=== PATIENT | female | born 1940 | race Caucasian/White ===

== ENCOUNTER 2024-03-18 14:26 | Outpatient (POV) | payer MEDICARE, SELFPAY ==
--- NOTE | 2024-03-18 14:47 | EXP.PAIN.OV ---
HPI Data of Consult Patient: new to practice Consult date: 03/18/24 Requesting Physician: Terrie Schmid APRN Primary Care Provider: Onelia Hooker Consult Narrative Reason for consult: Bilateral leg pain, left hip pain History of present illness: Ms. Kong is a 84 year old female who presents today as a new patient. She is a referral from Dr. Portillo office. Today she rates her pain a 8 out of 10. Patient states her pain is all in her bilateral lower legs and feet as well as her left hip. Patient describes it as a burning, stinging sensation that is worse with activity. Patient states that this really started around September of last year unrelated to any specific trauma or injury. She does state that the pain has progressively worsened over time. She states it does interfere with her ability to perform activities of daily living such as cooking and cleaning. Patient has tried [id number] Tylenol along with heat and ice and topicals with minimal relief. She was prescribed gabapentin and duloxetine however could not tolerate these medications due to side effects. Patient states that she did talk to her primary care provider thinking that maybe she was just getting neuropathy however they stated this was not what that provider believed. She states that when she went to Dr. Portillo office they did do the MRI and saw additional findings. Patient does state that the left side is worse than the right and that she is interested in any help we may be able to provide. She states that she has had physical therapy for more than 4 weeks with no additional change of her symptoms. She states that she was discharged from this for this reason. Patient denies any prior back surgery or injection history.Patient is prescribed alprazolam and gabapentin from outside providers. Her Selvin has been reviewed and is appropriate. CC: Terrie Schmid APRN [facility] Disclaimer: The information contained in this section may have been updated after the patient was seen, as this information can be updated by other users. Medical History (Updated 03/18/24 @ 15:25 by Terrie Schmid APRN) Hypertension Family History (Updated 03/18/24 @ 14:54 by Rosy Hamilton RN) Other No significant family history Social History (Updated 03/18/24 @ 14:55 by Rosy Hamilton RN) Smoking Status: Never smoker alcohol intake: never current occupational status: retired Travel in the last 8 weeks: None Review of Systems Review of Systems Review of systems:: pertinent systems reviewed and negative unless documented below Review of systems (narrative): Review of Systems: General: No recent weight changes, no fever, no sleep disturbances Respiratory: No cough, no shortness of air, no recurring pulmonary infections Cardiovascular/peripheral vascular: No chest pain, no palpitations, no edema, no shortness of breath Gastrointestinal: No new onset incontinence, normal bowel movements reported Genitourinary: No new onset incontinence Musculoskeletal:bilateral leg pain, left hip pain Psychiatric: [Normal mood/affect] Neurological: [Denies weakness in extremities], [denies balance issues] Meds Home Medications and Allergies Home Medications Medication Instructions Recorded Confirmed Type alprazolam 0.25 mg tablet 0.25 mg PO BID 03/18/24 03/18/24 History amlodipine 10 mg tablet 10 mg PO DAILY 03/18/24 03/18/24 History lisinopril 5 mg tablet 5 mg PO DAILY 03/18/24 03/18/24 History metoprolol succinate 50 mg 50 mg PO DAILY 03/18/24 03/18/24 History tablet,extended release 24 hr New Prescriptions to Start Prescriptions: Allergies Allergy/AdvReac Type Severity Reaction Status Date / Time penicillin G Allergy Intermediate Verified 03/18/24 14:46 Objective Narrative: Physical Exam: General: Alert and oriented x3, no acute distress, pleasant and cooperative Lungs: Respirations even and unlabored, symmetrical chest expansion Eyes: PERRL Musculoskeletal: Flexion and extension of lumbar [spine] somewhat guarded secondary to pain, [antalgic gait noted] point tenderness along left greater trochanteric bursa Neurological: Speech clear, no gross sensory deficit Additional findings Additional findings: MRI lumbar spine 02/24/2024 Findings: Paraspinal soft tissues grossly unremarkable other than colonic diverticulosis. Mild levoscoliosis with accentuation of the lordosis. Marrow signal generally age-appropriate. Distal cord and conus medullaris have a normal appearance with the tip of the conus at the level of L1-L2. T11-12 and T12-L1 are unremarkable. Foramina patent L1-L2: Grade 1 retrolisthesis L1. Concentric disc bulge. No significant canal stenosis. Mild facet arthropathy. Foramen are patent L2-3: Disc intact. Foramina patent. Mild facet arthropathy. L3-4: Mild concentric disc bulge. Moderate hypertrophic facet arthropathy and ligamentous hypertrophy. No significant stenosis. Foramina patent L4-5: Subtle grade 1 anterolisthesis L4. Mild concentric disc bulge. Moderate ligamentous hypertrophy and facet arthropathy contouring the thecal sac. These factors produce mild spinal stenosis. Foramina patent. L5-S1: Grade 1 anterolisthesis L5. Severe facet arthropathy with effusion of the joints. No visible synovial fluid. Moderate ligamentous hypertrophy. There is triangulation of the thecal sac posteriorly. These factors contribute to produce moderate spinal stenosis. Disc margin approximates both S1 nerve roots. Mild right and moderate left foraminal stenosis by endplate osteophytic disc complex Assessment and Plan *Assessment and plan (1) Degenerative disc disease, lumbar: Status: Acute Category: Medical Code(s): M51.36 - Other intervertebral disc degeneration, lumbar region (2) Lumbar radiculopathy: Status: Acute Category: Medical Code(s): M54.16 - Radiculopathy, lumbar region (3) Lumbar spinal stenosis: Status: Acute Qualifiers: Neurogenic claudication status: with neurogenic claudication Qualified Code(s): M48.062 - Spinal stenosis, lumbar region with neurogenic claudication Category: Medical Code(s): M48.061 - Spinal stenosis, lumbar region without neurogenic claudication (4) Greater trochanteric bursitis of left hip: Status: Acute Category: Medical Code(s): M70.62 - Trochanteric bursitis, left hip Plan Patient is experiencing significant pain in her bilateral legs with burning and numbness. Patient did have limited range of motion of her lumbar spine. Patient's MRI findings are most Significant at the L5-S1 level. I have discussed with patient that she may benefit from lumbar epidural steroid injection. Risk and benefits were discussed with the patient and she would like to proceed forward with this plan of care. Patient is not on any blood thinners. I will also order the patient a compounded cream. Patient has tried and failed conservative therapy including recent physical therapy with continued at home stretching and exercise. Will also send in a 14-day supply of pregabalin 50 mg at bedtime. Patient will be scheduled for a LESI L5-S1 under fluoroscopy. Patient has been instructed to contact the clinic with any concerns before the next appointment. Dr. Escobedo has reviewed this note and agrees with this plan of care. This note was dictated using voice recognition software and make contain errors or omissions.
[2024-03-18 14:54] VITALS: BP 137/74; PULSE 70; RESP 18; O2SAT 97; BMI 26.3
== END 2024-03-18 23:59 | disposition home or self-care (01) ==
PROVIDERS: PCP Family Medicine; Visit Provider Nurse Practitioner Family
DX: M48.062 Spinal stenosis, lumbar region with neurogenic claudication; M70.62 Trochanteric bursitis, left hip; M51.16 Intervertebral disc disorders with radiculopathy, lumbar region
CPT/HCPCS: 99202; G0463

== ENCOUNTER 2024-04-13 10:22 | Day surgery (SDC) | payer MEDICARE, SELFPAY ==
[2024-04-13 10:40] VITALS: BP 125/63; PULSE 72; RESP 18; TEMP 36.4; O2SAT 95; BMI 29.0
[2024-04-13] MEDS: methylPREDNISolone ACETATE 80MG/ML VIAL 80 MG (10:40)
[2024-04-13 10:41] VITALS: BP 122/59; PULSE 78; RESP 18; O2SAT 97
[2024-04-13 10:42] VITALS: BP 122/59; BP 126/64; PULSE 67; PULSE 78; RESP 18; TEMP 36.4; O2SAT 95; O2SAT 97
--- NOTE | 2024-04-13 10:46 | P.PCN_ITS ---
Procedure Date: 04/13/24 Time: 10:40 Anesthesiologist:: Marvin Ayala CRNA Complications:: None Pre-procedure Diagnosis:: Degenerative disc lumbar spine multilevels. Lumbar radiculopathy. Lumbar spondylosis. Multilevel lumbar facet arthropathy. Post-procedure Diagnosis:: Same. Indications for Procedure:: This patient is a very pleasant 84-year-old female comes our clinic today for a lumbar epidural steroid injection at the L5-S1 level. Patient reports low back pain as well as bilateral hip and leg radicular symptoms. She rates her pain 7/10. Procedure Details:: Procedure: Lumbar epidural steroid injection under fluoroscopy Informed consent was obtained and the risks and benefits of the procedure were explained to the patient. The patient was taken to the procedure room and noninvasive monitors placed, including noninvasive blood pressure cuff and pulse oximeter. The back was viewed using C-arm Fluoroscopy and prepped using Chloraprep as a cleansing solution and the L5-S1 interspace was palpated. Skin and subcutaneous tissues were anesthetized using lidocaine 1.5% and a 25-gauge needle. After this, an 18-gauge Touhy epidural needle was placed into the L5-S1 interspace and advanced using fluoroscopic guidance and loss of resistance to air until the epidural space was encountered. After confirmation of needle placement in the epidural space, with dye, a solution containing normal saline, 3 mL and Depo-Medrol 80 mg were incrementally injected into the lumbar epidural space. The patient tolerated the procedure well with no complications. The patient was observed in the Pain Clinic and then discharged home neurolog ically intact. Plan and Disposition:: Patient was discharged without incident.
== END 2024-04-13 10:42 | disposition home or self-care (01) ==
PROVIDERS: PCP Family Medicine; Visit Provider Nurse Anesthetist, Certified Registered
DX: M51.16 Intervertebral disc disorders with radiculopathy, lumbar region (principal); M47.26 Other spondylosis with radiculopathy, lumbar region
CPT/HCPCS: 62323; J1010

== ENCOUNTER 2024-04-29 12:51 | Outpatient (POV) | payer MEDICARE, SELFPAY ==
[2024-04-29 13:16] VITALS: BP 125/64; PULSE 67; RESP 16; O2SAT 97; BMI 25.5
--- NOTE | 2024-04-29 13:21 | EXP.PAIN.SOA ---
[facility] Pain Management SOAP Note Subjective:: Patient is a pleasant 84-year-old female who presents today for follow-up lumbar epidural steroid injection L5-S1 on 04/13/2024. Today she rates her pain a 5 out of 10. Patient denies any new trauma or injury. She does state that she has had at least 75% improvement following this injection and feels like it still helping. Patient states that the medication of pregabalin that we did also prescribed that initially she did really well with it and took it for over a week with significant improvement of her pain that she was experiencing down her left leg at night. Patient states that she was able to sleep throughout the night and that her pain was covered until about 930 the next day. Patient does state that all of a sudden on Friday she started experiencing diarrhea that followed through on Friday and Friday. Patient states that she was unsure if she had eaten something or whether or not if possibly the pregabalin had done it. Patient states that she did stop taking this medication and as of right now after having the injection she is still not having pain at night. Patient states that her current symptoms are more so just during the day and only her on the back of her left thigh and calf. She states it is not as severe as what it was and she is able to move around easier. Patient does state that she feels like a lot of her symptoms now are more so prominent when going up and down stairs related to arthritis. Patient states she cannot tolerate ibuprofen due to stomach issues however she denies any heart issues. Patient is asking if there is anything we could provide to help with the day pain. Patient states she did get her compounded cream and states she still is using it however she really has not noticed significant improvement. Her Selvin has been reviewed and is appropriate. Review of Systems: General: No recent weight changes, no fever, no sleep disturbances Respiratory: No cough, no shortness of air, no recurring pulmonary infections Cardiovascular/peripheral vascular: No chest pain, no palpitations, no edema, no shortness of breath Gastrointestinal: No new onset incontinence, normal bowel movements reported Genitourinary: No new onset incontinence Musculoskeletal: Left leg pain Psychiatric: [Normal mood/affect] Neurological: [Denies weakness in extremities], [denies balance issues] Objective:: Physical Exam: General: Alert and oriented x3, no acute distress, pleasant and cooperative Lungs: Respirations even and unlabored, symmetrical chest expansion Eyes: PERRL Musculoskeletal: Flexion and extension of lumbar [spine] somewhat guarded secondary to pain, [antalgic gait noted] Neurological: Speech clear, no gross sensory deficit Assessment:: Degenerative disc disease of lumbar spine with lumbar radiculopathy symptoms, lumbar spinal stenosis, greater trochanteric bursitis Plan:: Patient has had significant improvement following her lumbar epidural and does not require any additional injection therapy at this time. Patient will return to clinic in 1 month for reevaluation of symptoms and plan of care. I will send in a 14-day supply of meloxicam 7.5 mg daily. Patient was counseled to discontinue all other NSAIDs while taking this and to try it with food to minimize GI upset. Patient has been instructed to contact the clinic with any concerns before the next appointment. Dr. Escobedo has reviewed this note and agrees with this plan of care. This note was dictated using voice recognition software and make contain errors or omissions. [facility] Disclaimer: The information contained in this section may have been updated after the patient was seen, as this information can be updated by other users. Medical History Hypertension Family History Other No significant family history Social History Smoking Status: Never smoker alcohol intake: never current occupational status: other Travel in the last 8 weeks: None
== END 2024-04-29 23:59 | disposition home or self-care (01) ==
PROVIDERS: Visit Provider Nurse Practitioner Family
DX: M51.16 Intervertebral disc disorders with radiculopathy, lumbar region (principal); M48.061 Spinal stenosis, lumbar region without neurogenic claudication; M70.60 Trochanteric bursitis, unspecified hip
CPT/HCPCS: 99212; G0463

== ENCOUNTER 2024-06-02 12:46 | Outpatient (POV) | payer MEDICARE, SELFPAY ==
[2024-06-02 13:12] VITALS: BP 134/66; PULSE 64; RESP 18; O2SAT 96; BMI 24.5
--- NOTE | 2024-06-02 13:31 | A.OFFVIS_ITS ---
[facility] Disclaimer: The information contained in this section may have been updated after the patient was seen, as this information can be updated by other users. Medical History (Updated 06/02/24 @ 13:37 by Terrie Schmid APRN) Hypertension Family History Other No significant family history Social History Smoking Status: Never smoker alcohol intake: never current occupational status: other Travel in the last 8 weeks: None PM Subjective & Objective Subjective Subjective:: Patient is a pleasant 84-year-old female who presents today for follow-up. Today she rates her pain an 8 out of 10. Patient states that she is still experiencing chronic pain that runs down her left leg. Patient states it is predominantly a little bit above her left knee on the outer side and then it runs down to her ankle. She denies any new trauma or injury. Patient did previously have a lumbar epidural back in April that did provide 75% relief and was helping up until about 2 weeks ago. Patient does state the pain is a burning stinging sensation that is affecting her overall balance. Patient states she has difficulty performing ADLs such as cooking or cleaning or even simple ambulation. Patient states that she has trouble going up and down stairs and that she tried additionally the topical cream that we ordered however still made no improvement. Patient was tried on gabapentin from her primary care in the past however could not tolerate it and was tried on pregabalin from our office however felt like she might of had some diarrhea related to this medication and discontinued it. Her Selvin has been reviewed and is appropriate. Review of Systems: General: No recent weight changes, no fever, no sleep disturbances Respiratory: No cough, no shortness of air, no recurring pulmonary infections Cardiovascular/peripheral vascular: No chest pain, no palpitations, no edema, no shortness of breath Gastrointestinal: No new onset incontinence, normal bowel movements reported Genitourinary: No new onset incontinence Musculoskeletal:low back pain, Left leg pain Psychiatric: [Normal mood/affect] Neurological: [Denies weakness in extremities], [denies balance issues] Pain at rest (0-10 scale): 8 Objective Objective:: Physical Exam: General: Alert and oriented x3, no acute distress, pleasant and cooperative Lungs: Respirations even and unlabored, symmetrical chest expansion Eyes: PERRL Musculoskeletal: Flexion and extension of lumbar [spine] somewhat guarded secondary to pain, [antalgic gait noted] positive left leg raise with decreased sensation to light touch and decreased reflexes Neurological: Speech clear, no gross sensory deficit Has patient had previous pain injection?: No Conservative treatment options previously tried: NSAIDS Length of treatment: Longer than 6 weeks and Home exercise plan Length of treatment: Longer than 6 weeks Meds Home Medications and Allergies Home Medications ?Medication ?Instructions ?Recorded ?Confirmed ?Type alprazolam 0.25 mg tablet 0.25 mg PO BID 03/18/24 06/02/24 History amlodipine 10 mg tablet 10 mg PO DAILY 03/18/24 06/02/24 History lisinopril 5 mg tablet 5 mg PO DAILY 03/18/24 06/02/24 History metoprolol succinate 50 mg 50 mg PO DAILY 03/18/24 06/02/24 History tablet,extended release 24 hr pregabalin 50 mg capsule 50 mg PO HS #14 caps 03/18/24 06/02/24 Rx meloxicam 7.5 mg tablet 7.5 mg PO DAILY #14 tabs 04/29/24 06/02/24 Rx New Prescriptions to Start Prescriptions: Allergies Allergy/AdvReac Type Severity Reaction Status Date / Time penicillin G Allergy Intermediate Verified 03/18/24 14:46 Assessment and Plan *Assessment and plan (1) Lumbar radiculopathy: Status: Acute Category: Medical Code(s): M54.16 - Radiculopathy, lumbar region (2) Degenerative disc disease, lumbar: Status: Acute Category: Medical Code(s): M51.36 - Other intervertebral disc degeneration, lumbar region (3) Left leg pain: Status: Acute Category: Medical Code(s): M79.605 - Pain in left leg Plan Patient is experiencing significant pain down her entire left extremity with burning and tingling on the outer aspect of her lower left leg. Patient did have positive leg raise with decreased sensation light touch and decreased reflexes. I did discuss with patient that she may benefit from a left transforaminal epidural steroid injection. Risk and benefits were discussed with patient and she would like to proceed forward with this plan of care. Patient is not on any blood thinners. Patient has tried and failed conservative therapy including continued at home stretching exercise between injections for longer than 6 weeks. Patient will be scheduled for a left transforaminal epidural steroid injection L4-L5 and L5-S1 under fluoroscopy. Patient has been instructed to contact the clinic with any concerns before the next appointment. Dr. Escobedo has reviewed this note and agrees with this plan of care. This note was dictated using voice recognition software and make contain errors or omissions. All injections are used with Lidocaine or Bupivacaine and Depo Medrol.
== END 2024-06-02 23:59 | disposition home or self-care (01) ==
LOC: SC.PAIN 12:47
PROVIDERS: Visit Provider Nurse Practitioner Family
DX: M54.16 Radiculopathy, lumbar region (principal); M51.36 Other intervertebral disc degeneration, lumbar region; M79.605 Pain in left leg
CPT/HCPCS: 99212; G0463

== ENCOUNTER 2024-06-15 13:10 | Day surgery (SDC) | payer MEDICARE, SELFPAY ==
[2024-06-15 13:43] VITALS: BP 137/69; PULSE 75; RESP 16; TEMP 36.7; O2SAT 93; BMI 25.4
[2024-06-15] MEDS: LIDOCAINE 1% 5ML PF VIAL 5 ML (13:47)
[2024-06-15 13:49] VITALS: BP 152/72; PULSE 76; RESP 18; O2SAT 97
[2024-06-15 13:50] VITALS: BP 152/72; PULSE 76; RESP 18; O2SAT 97
--- NOTE | 2024-06-15 13:54 | P.PCN_ITS ---
Procedure Date: 06/15/24 Time: 13:50 Anesthesiologist:: Marvin Ayala CRNA Complications:: None Pre-procedure Diagnosis:: Degenerative disc lumbar spine multilevels. Lumbar radiculopathy. Multilevel lumbar disc bulge. Lumbar spondylosis. Post-procedure Diagnosis:: Same. Indications for Procedure:: Patient is a very pleasant 84-year-old female comes our clinic today for a left L3-4 and L4-5 transforaminal epidural steroid injection. Patient describes left low lumbar back pain as well as left hip and leg radicular symptoms as constant, dull, aching. Patient had significant improvement terms of her overall symptoms with the previous injection of the same levels. Procedure Details:: Details of the procedure explained to the patient. The patient was taken to procedure room placed in the prone position. The area over the lumbar spine was cleansed using chlorhexidine as a cleansing solution. Using fluoroscopy guidance markers were placed over the left border of the L3 and L4 vertebral body. At each marker the skin and subcutaneous tissue was anesthetized using 1% lidocaine and a 25-gauge needle. At this time using fluoroscopy guidance 3 and half inch 22-gauge spinal needle was used to access the upper one third of the l eft L3-4, L4-5 foramen. Using fluoroscopy guidance in the lateral position needle position was confirmed using 0.5 mL of contrast dye. Good spread was noted in the epidural space at each level. After negative aspiration 2 mL of 1% lidocaine and 40 mg of Depo-Medrol was injected at each level. Patient tolerated procedure without difficulty. There are no complications. Plan and Disposition:: Patient was discharged out incident.
[2024-06-15 13:59] VITALS: BP 139/74; PULSE 66; RESP 18; O2SAT 94
== END 2024-06-15 14:01 | disposition home or self-care (01) ==
PROVIDERS: Visit Provider Nurse Anesthetist, Certified Registered
DX: M51.16 Intervertebral disc disorders with radiculopathy, lumbar region (principal); M47.26 Other spondylosis with radiculopathy, lumbar region
CPT/HCPCS: 64483; 64484; J1010

== ENCOUNTER 2024-07-05 13:45 | Outpatient (POV) | payer MEDICARE, SELFPAY ==
[2024-07-05 14:11] VITALS: BP 146/70; PULSE 70; RESP 18; O2SAT 98; BMI 25.4
--- NOTE | 2024-07-05 16:10 | EXP.PAIN.SOA ---
[facility] Disclaimer: The information contained in this section may have been updated after the patient was seen, as this information can be updated by other users. Medical History Hypertension Family History Other No significant family history Social History Smoking Status: Never smoker alcohol intake: never current occupational status: retired Travel in the last 8 weeks: None PM Subjective & Objective Subjective Subjective:: Patient is a pleasant 84-year-old female who presents today for follow-up of left transforaminal epidural steroid injection L3-L4 and L4-L5 on 06/15/2024. Patient does state today that her pain is an 8 out of 10 however does state that this injection worked very well and that it did decrease the severity. By at least 50%. Patient does state that it is still helping and that she is able to do more and was able to even mow and weed eat. Patient states that she does occasionally have to stop and take breaks and that it is much more manageable. Patient is currently managed with meloxicam 7.5 mg twice daily from our office and states that she has not had any stomach issues with this medication and that it does overall seem like it may be helping. Patient is also seeing about starting chiropractor therapy they are in [place]. Her Selvin has been reviewed and is appropriate. Review of Systems: General: No recent weight changes, no fever, no sleep disturbances Respiratory: No cough, no shortness of air, no recurring pulmonary infections Cardiovascular/peripheral vascular: No chest pain, no palpitations, no edema, no shortness of breath Gastrointestinal: No new onset incontinence, normal bowel movements reported Genitourinary: No new onset incontinence Musculoskeletal: Low back pain Psychiatric: [Normal mood/affect] Neurological: [Denies weakness in extremities], [denies balance issues] Pain at rest (0-10 scale): 8 Objective Objective:: Physical Exam: General: Alert and oriented x3, no acute distress, pleasant and cooperative Lungs: Respirations even and unlabored, symmetrical chest expansion Eyes: PERRL Musculoskeletal: Flexion and extension of lumbar [spine] somewhat guarded secondary to pain, [antalgic gait noted] Neurological: Speech clear, no gross sensory deficit Has patient had previous pain injection?: Yes Percent improvement in pain since last injection: 50% Conservative treatment options previously tried: Home exercise plan Length of treatment: Longer than 6 weeks Meds Home Medications and Allergies Home Medications ?Medication ?Instructions ?Recorded ?Confirmed ?Type alprazolam 0.25 mg tablet 0.25 mg PO BID 03/18/24 07/05/24 History amlodipine 10 mg tablet 10 mg PO DAILY 03/18/24 07/05/24 History lisinopril 5 mg tablet 5 mg PO DAILY 03/18/24 07/05/24 History metoprolol succinate 50 mg 50 mg PO DAILY 03/18/24 07/05/24 History tablet,extended release 24 hr pregabalin 50 mg capsule 50 mg PO HS #14 caps 03/18/24 07/05/24 Rx meloxicam 7.5 mg tablet 7.5 mg PO DAILY #14 tabs 04/29/24 07/05/24 Rx New Prescriptions to Start Prescriptions: Allergies Allergy/AdvReac Type Severity Reaction Status Date / Time penicillin G Allergy Intermediate Verified 06/15/24 13:44 Assessment and Plan *Assessment and plan (1) Lumbar radiculopathy: Status: Acute Category: Medical Code(s): M54.16 - Radiculopathy, lumbar region (2) Degenerative disc disease, lumbar: Status: Acute Category: Medical Code(s): M51.36 - Other intervertebral disc degeneration, lumbar region Plan Patient has had significant improvement following her transforaminal epidural and does not require any additional injection therapy at this time. I will refill the patient's meloxicam and also send in a 2-week dose of baclofen 5 mg twice daily as needed. Patient will return to clinic in 1 month for reevaluation of symptoms and plan of care. Patient has been instructed to contact the clinic with any concerns before the next appointment. Dr. Escobedo has reviewed this note and agrees with this plan of care. This note was dictated using voice recognition software and make contain errors or omissions. All injections are used with Lidocaine or Bupivacaine and Depo Medrol.
== END 2024-07-05 23:59 | disposition home or self-care (01) ==
PROVIDERS: PCP Family Medicine; Visit Provider Nurse Practitioner Family
DX: M51.16 Intervertebral disc disorders with radiculopathy, lumbar region (principal)
CPT/HCPCS: 99212; G0463

== ENCOUNTER 2024-09-01 12:52 | Outpatient (POV) | payer MEDICARE, SELFPAY ==
--- NOTE | 2024-09-01 13:17 | EXP.PAIN.SOA ---
[facility] Disclaimer: The information contained in this section may have been updated after the patient was seen, as this information can be updated by other users. Medical History Hypertension Family History Other No significant family history Social History Smoking Status: Never smoker alcohol intake: never current occupational status: retired Travel in the last 8 weeks: None PM Subjective & Objective Subjective Subjective:: Patient is a pleasant 84-year-old female who presents today for 2-month follow-up. Today she rates her pain a 9 out of 10. She denies any new trauma or injury. She does state that all of her pain is around the backside of her calves and her feet have numbness along the bottom.She did have a left transforaminal epidural steroid injection L3-L4 and L4-L5 on 06/15/2024 that did provide at least 50% improvement. She states that this does seem to be still doing well other than the current pains. Patient does state from her last visit she did get prescribed gabapentin from an outside provider and she could not tolerate this. She states she was then given oral steroids and ended up in the hospital due to elevated heart rate and blood pressure. Patient is currently managed with meloxicam 7.5 mg twice daily from our office she denies any side effects from this medication. She was previously tried on pregabalin 50 mg however about a week and a half and she had an episode of diarrhea and discontinued this medication. Her Selvin has been reviewed and is appropriate. Review of Systems: General: No recent weight changes, no fever, no sleep disturbances Respiratory: No cough, no shortness of air, no recurring pulmonary infections Cardiovascular/peripheral vascular: No chest pain, no palpitations, no edema, no shortness of breath Gastrointestinal: No new onset incontinence, normal bowel movements reported Genitourinary: No new onset incontinence Musculoskeletal: Lower calf pain, feet pain Psychiatric: [Normal mood/affect] Neurological: [Denies weakness in extremities], [denies balance issues] Pain at rest (0-10 scale): 9 Objective Objective:: Physical Exam: General: Alert and oriented x3, no acute distress, pleasant and cooperative Lungs: Respirations even and unlabored, symmetrical chest expansion Eyes: PERRL Musculoskeletal: Flexion and extension of bilateral feet somewhat guarded secondary to pain, [antalgic gait noted] Neurological: Speech clear, no gross sensory deficit Has patient had previous pain injection?: No Conservative treatment options previously tried: Home exercise plan Length of treatment: Longer than 12 weeks Meds Home Medications and Allergies Home Medications ?Medication ?Instructions ?Recorded ?Confirmed ?Type alprazolam 0.25 mg tablet 0.25 mg PO BID 03/18/24 07/05/24 History amlodipine 10 mg tablet 10 mg PO DAILY 03/18/24 07/05/24 History lisinopril 5 mg tablet 5 mg PO DAILY 03/18/24 07/05/24 History metoprolol succinate 50 mg 50 mg PO DAILY 03/18/24 07/05/24 History tablet,extended release 24 hr pregabalin 50 mg capsule 50 mg PO HS #14 caps 03/18/24 07/05/24 Rx baclofen 5 mg tablet 5 mg PO BID #28 tabs 07/05/24 Rx meloxicam 7.5 mg tablet 7.5 mg PO BID #60 tabs 07/05/24 Rx meloxicam 7.5 mg tablet 7.5 mg PO BID #60 tabs 08/12/24 Rx New Prescriptions to Start Prescriptions: Allergies Allergy/AdvReac Type Severity Reaction Status Date / Time penicillin G Allergy Intermediate Verified 06/15/24 13:44 Assessment and Plan *Assessment and plan (1) Left leg pain: Status: Acute Category: Medical Code(s): M79.605 - Pain in left leg (2) Greater trochanteric bursitis of left hip: Status: Acute Category: Medical Code(s): M70.62 - Trochanteric bursitis, left hip (3) Lumbar spinal stenosis: Status: Acute Qualifiers: Neurogenic claudication status: with neurogenic claudication Qualified Code(s): M48.062 - Spinal stenosis, lumbar region with neurogenic claudication Category: Medical Code(s): M48.061 - Spinal stenosis, lumbar region without neurogenic claudication (4) Lumbar radiculopathy: Status: Acute Category: Medical Code(s): M54.16 - Radiculopathy, lumbar region (5) Degenerative disc disease, lumbar: Status: Acute Category: Medical Code(s): M51.36 - Other intervertebral disc degeneration, lumbar region Plan I did discuss with the patient that we could possibly do bilateral posterior tibial nerve blocks for her feet pain and see if this does improve. Patient was also counseled that she may benefit from the pregabalin and trying it again. I do believe her episode of diarrhea was just a coincidence. Patient had already been taking this medication for longer than a week with improvement before the diarrhea episode occurred. Patient does state that she still has this remaining prescription and is asking whether or not she should try it again. I have discussed with the patient that I would recommended. Patient also stated that the meloxicam she still has been taking and it does not upset her stomach however she does not necessarily notice a huge improvement. Her Selvin has been reviewed patient will return to clinic via 2-week telehealth appointment for reevaluation of symptoms and plan of care. Patient has been instructed to contact the clinic with any concerns before the next appointment. Dr. Escobedo has reviewed this note and agrees with this plan of care. This note was dictated using voice recognition software and make contain errors or omissions. All injections are used with Lidocaine or Bupivacaine and Depo Medrol.
[2024-09-01 14:21] VITALS: BP 112/63; PULSE 65; RESP 14; O2SAT 65; BMI 26.4
== END 2024-09-01 23:59 | disposition home or self-care (01) ==
PROVIDERS: PCP Physician Assistant; Visit Provider Nurse Practitioner Family
DX: M79.605 Pain in left leg (principal); M70.62 Trochanteric bursitis, left hip; M48.062 Spinal stenosis, lumbar region with neurogenic claudication; M51.16 Intervertebral disc disorders with radiculopathy, lumbar region
CPT/HCPCS: 99212; G0463

== ENCOUNTER 2024-09-15 13:09 | Outpatient (POV) | payer MEDICARE, SELFPAY ==
--- NOTE | 2024-09-15 13:11 | A.OFFVIS_ITS ---
[facility] Disclaimer: The information contained in this section may have been updated after the patient was seen, as this information can be updated by other users. Medical History Hypertension Family History Other No significant family history Social History Smoking Status: Never smoker alcohol intake: never current occupational status: other Travel in the last 8 weeks: None PM Subjective & Objective Subjective Subjective:: Patient is a pleasant 84-year-old female who presents today for 2-week follow-up via telehealth appointment. This visit is occurring at the patient's home and she has given verbal consent for this audio appointment. Today she rates her pain a 7 out of 10. She denies any new trauma or injury. Patient from our last visit was counseled to try her pregabalin 50 mg again. She denies any diarrhea episodes however she does state that the dose she took during the day she did feel little bit more drowsy and somewhat lightheaded. She denies any other issues. Patient is asking if we could possibly go down a little on the dosage. Patient is also still taking her meloxicam 7.5 mg twice a day. She denies any side effects from this medication. Her Selvin has been reviewed and is appropriate. Review of Systems: General: No recent weight changes, no fever, no sleep disturbances Respiratory: No cough, no shortness of air, no recurring pulmonary infections Cardiovascular/peripheral vascular: No chest pain, no palpitations, no edema, no shortness of breath Gastrointestinal: No new onset incontinence, normal bowel movements reported Genitourinary: No new onset incontinence Musculoskeletal: Low back pain Psychiatric: [Normal mood/affect] Neurological: [Denies weakness in extremities], [denies balance issues] Pain at rest (0-10 scale): 7 Objective Objective:: General: Alert and oriented x3, pleasant and cooperative Lungs: Patient is able to say complete sentences without dyspnea Neurological: Speech clear Has patient had previous pain injection?: No Conservative treatment options previously tried: Home exercise plan Length of treatment: Longer than 12 weeks Meds Home Medications and Allergies Home Medications ?Medication ?Instructions ?Recorded ?Confirmed ?Type alprazolam 0.25 mg tablet 0.25 mg PO BID 03/18/24 09/01/24 History amlodipine 10 mg tablet 10 mg PO DAILY 03/18/24 09/01/24 History lisinopril 5 mg tablet 5 mg PO DAILY 03/18/24 09/01/24 History metoprolol succinate 50 mg 50 mg PO DAILY 03/18/24 09/01/24 History tablet,extended release 24 hr pregabalin 50 mg capsule 50 mg PO HS #14 caps 03/18/24 09/01/24 Rx baclofen 5 mg tablet 5 mg PO BID #28 tabs 07/05/24 09/01/24 Rx meloxicam 7.5 mg tablet 7.5 mg PO BID #60 tabs 09/01/24 Rx meloxicam 7.5 mg tablet 7.5 mg PO BID #60 tabs 09/15/24 Rx pregabalin 25 mg capsule 25 mg PO BID #60 caps 09/15/24 Rx New Prescriptions to Start Prescriptions: Allergies Allergy/AdvReac Type Severity Reaction Status Date / Time penicillin G Allergy Intermediate Verified 06/15/24 13:44 Assessment and Plan *Assessment and plan (1) Lumbar radiculopathy: Status: Acute Category: Medical Code(s): M54.16 - Radiculopathy, lumbar region (2) Degenerative disc disease, lumbar: Status: Acute Category: Medical Code(s): M51.36 - Other intervertebral disc degeneration, lumbar region Plan I did discuss with the patient that I will send in a 1 month supply of the pregabalin at 25 mg twice daily. Patient does feel like her pain is more along the lines of around 1030 and then later afternoon. I did discuss with the patient that she can take this more in the morning and then late afternoon and see how she does with the lower dosage. Patient will also be sent in refills on her meloxicam with a 3-month supply. Patient will return to clinic via telehealth appointment in 1 month for reevaluation of symptoms and plan of care. This visit did go on from -20 01. Patient has been instructed to contact the clinic with any concerns before the next appointment. Dr. Escobedo has reviewed this note and agrees with this plan of care. This note was dictated using voice recognition software and make contain errors or omissions. All injections are used with Lidocaine or Bupivacaine and Depo Medrol.
== END 2024-09-15 23:59 | disposition home or self-care (01) ==
LOC: SC.PAIN 13:09
PROVIDERS: Visit Provider Nurse Practitioner Family
DX: M51.16 Intervertebral disc disorders with radiculopathy, lumbar region (principal)
CPT/HCPCS: 99212; G0463

== ENCOUNTER 2024-10-11 11:21 | Outpatient (POV) | payer MEDICARE, SELFPAY ==
--- NOTE | 2024-10-11 11:22 | A.OFFVIS_ITS ---
[facility] Disclaimer: The information contained in this section may have been updated after the patient was seen, as this information can be updated by other users. Medical History Hypertension Family History Other No significant family history Social History Smoking Status: Never smoker alcohol intake: never current occupational status: other Travel in the last 8 weeks: None PM Subjective & Objective Subjective Subjective:: Patient is a pleasant 84-year-old female who presents today via telehealth appointment for follow-up. Today she rates her pain a 7 out of 10. She denies any new trauma or injuries. She does state that she did end up trying the pregabalin twice a day however feels like it just was not working well for her. She states that it was still causing loose stool. Patient does state in the past she has a long list of medicines that just does not seem to work well for her. Patient does state that the numbness and tingling that radiates down her extremities that was primarily in the left leg is even now into the right leg. Patient states the pain is constant and interferes with her ability perform activities of daily living such as cooking and cleaning. Patient states that she would like to see about additional injections. Patient did previously have a left transforaminal epidural in June that did provide more than 50% relief and lasted a couple of months. Patient did also have a lumbar epidural in April that provided 75% relief that lasted about a month. Patient did get improved function with both of these injections and would like to get scheduled for an injection as soon as possible due to the worsening pain. Patient has continued conservative treatment such as oral medication, heat and ice and topicals with minimal improvement. Patient does continue at home stretching exercise for longer than 12 weeks with no additional changes. Her Selvin has been reviewed and is appropriate. This telehealth appointment is occurring at the patient's home and she has given verbal consent for this audio appointment. Review of Systems: General: No recent weight changes, no fever, no sleep disturbances Respiratory: No cough, no shortness of air, no recurring pulmonary infections Cardiovascular/peripheral vascular: No chest pain, no palpitations, no edema, no shortness of breath Gastrointestinal: No new onset incontinence, normal bowel movements reported Genitourinary: No new onset incontinence Musculoskeletal: Low back pain, bilateral leg numbness tingling Psychiatric: [Normal mood/affect] Neurological: [Denies weakness in extremities], [denies balance issues] Pain at rest (0-10 scale): 7 Objective Objective:: General: Alert and oriented x3, pleasant and cooperative Lungs: Patient is able to say complete sentences without dyspnea Neurological: Speech clear Has patient had previous pain injection?: No Conservative treatment options previously tried: Home exercise plan Length of treatment: Longer than 12 weeks Meds Home Medications and Allergies Home Medications ?Medication ?Instructions ?Recorded ?Confirmed ?Type alprazolam 0.25 mg tablet 0.25 mg PO BID 03/18/24 09/01/24 History amlodipine 10 mg tablet 10 mg PO DAILY 03/18/24 09/01/24 History lisinopril 5 mg tablet 5 mg PO DAILY 03/18/24 09/01/24 History metoprolol succinate 50 mg 50 mg PO DAILY 03/18/24 09/01/24 History tablet,extended release 24 hr pregabalin 50 mg capsule 50 mg PO HS #14 caps 03/18/24 09/01/24 Rx baclofen 5 mg tablet 5 mg PO BID #28 tabs 07/05/24 09/01/24 Rx meloxicam 7.5 mg tablet 7.5 mg PO BID #60 tabs 09/01/24 Rx meloxicam 7.5 mg tablet 7.5 mg PO BID #60 tabs 09/15/24 Rx pregabalin 25 mg capsule 25 mg PO BID #60 caps 09/15/24 Rx New Prescriptions to Start Prescriptions: Allergies Allergy/AdvReac Type Severity Reaction Status Date / Time penicillin G Allergy Intermediate Verified 06/15/24 13:44 Assessment and Plan *Assessment and plan (1) Lumbar radiculopathy: Status: Acute Category: Medical Code(s): M54.16 - Radiculopathy, lumbar region (2) Degenerative disc disease, lumbar: Status: Acute Category: Medical Code(s): M51.36 - Other intervertebral disc degeneration, lumbar region Plan I did discuss with the patient due to her worsening pain with numbness and tingling down going down both her bilateral lower extremities that I do believe she would benefit from a repeat lumbar epidural steroid injection. Risk and benefits were discussed with patient and she would like to proceed forward with this plan of care. Patient has tried and failed conservative therapy including continued at home stretching exercise for longer than 12 weeks. Patient has had epidurals in the past that did provide anywhere from 50 to 75% relief lasting and improved function for 1 to 2 months. Patient's last epidural was done in June of this year. Patient will be scheduled for an LESI L4-L5 under fluoroscopy. Patient has been instructed to contact the clinic with any concerns before the next appointment. Dr. Escobedo has reviewed this note and agrees with this plan of care. This note was dictated using voice recognition software and make contain errors or omissions. All injections are used with Lidocaine or Bupivacaine and Depo Medrol.
== END 2024-10-11 23:59 | disposition home or self-care (01) ==
LOC: SC.PAIN 11:21
PROVIDERS: Visit Provider Nurse Practitioner Family
DX: M51.362 Other intervertebral disc degeneration, lumbar region with discogenic back pain and lower extremity pain (principal); Z73.89 Other problems related to life management difficulty
CPT/HCPCS: 99212; G0463

== ENCOUNTER 2024-11-09 11:10 | Day surgery (SDC) | payer MEDICARE, SELFPAY ==
[2024-11-09 12:01] VITALS: BP 138/69; PULSE 75; RESP 16; TEMP 36.2; O2SAT 95; BMI 26.9
--- NOTE | 2024-11-09 12:33 | EXP.PAIN.PRO ---
Procedure Date: 11/09/24 Time: 13:15 Anesthesiologist:: Marvin Ayala CRNA Complications:: None Pre-procedure Diagnosis:: Degenerative disc lumbar spine multilevels. Lumbar radiculopathy. Post-procedure Diagnosis:: Same. Indications for Procedure:: Patient is a pleasant 84-year-old female who comes our clinic today for lumbar epidural steroid injection L4-5 level. Patient describes low lumbar back pain as constant, dull, aching. Patient also reports bilateral hip and leg radicular symptoms to the foot. She rates her pain 7/10. Procedure Details:: Procedure: Lumbar epidural steroid injection under fluoroscopy Informed consent was obtained and the risks and benefits of the procedure were explained to the patient. The patient was taken to the procedure room and noninvasive monitors placed, including noninvasive blood pressure cuff and pulse oximeter. The back was viewed using C-arm Fluoroscopy and prepped using Chloraprep as a cleansing solution and the L4-L5 interspace was palpated. Skin and subcutaneous tissues were anesthetized using lidocaine 1.5% and a 25-gauge needle. After this, an 18-gauge Touhy epidural needle was placed into the L4-L5 interspace and advanced using fluoroscopic guidance and loss of resistance to air until the epidural space was encountered. After confirmation of needle placement in the epidural space, with dye, a solution containing normal saline, 3 mL and Depo-Medrol 80 mg were incrementally injected into the lumbar epidural space. The patient tolerated the procedure well with no complications. The patient was observed in the Pain Clinic and then discharged home neurologically intact. Plan and Disposition:: Patient was discharged without incident.
[2024-11-09 12:37] VITALS: BP 127/68; PULSE 58; RESP 16; O2SAT 96
[2024-11-09] MEDS: methylPREDNISolone ACETATE 80MG/ML VIAL 80 MG (13:32)
== END 2024-11-09 12:37 | disposition home or self-care (01) ==
PROVIDERS: PCP Physician Assistant; Visit Provider Nurse Anesthetist, Certified Registered
DX: M51.16 Intervertebral disc disorders with radiculopathy, lumbar region (principal)
CPT/HCPCS: 62323; J1010

== ENCOUNTER 2024-12-03 14:19 | Outpatient (POV) | payer MEDICARE, SELFPAY ==
[2024-12-03 15:05] VITALS: BP 137/66; PULSE 70; RESP 16; O2SAT 97; BMI 28.5
--- NOTE | 2024-12-03 16:05 | A.OFFVIS_ITS ---
[facility] Disclaimer: The information contained in this section may have been updated after the patient was seen, as this information can be updated by other users. Medical History (Updated 12/03/24 @ 16:08 by Terrie Schmid APRN) Hypertension Family History Other No significant family history Social History Smoking Status: Never smoker alcohol intake: never current occupational status: other Travel in the last 8 weeks: None PM Subjective & Objective Subjective Subjective:: Patient is a pleasant 84-year-old female who presents today for follow-up of lumbar epidural steroid injection L4-L5 on 11/09/2024. Patient rates her pain today a 10 out of 10. She denies any new trauma or injury. She does state that she has a lot of pain all across her low back and hips. Patient states that she did get relief for 7 days from the date of the injection on with at least 50% however it immediately went back to baseline. Patient states the pain is constant and that she cannot do activities of daily living due to the pain. Patient is interested in any help we may be able to provide. She states that just any type of activity up walking moving causes significant disability. Patient is interested in any help we may build to provide. Patient has tried oral medications in the past however just cannot tolerate them either they cause increased stomach upset or diarrhea or just does not like the way they make her feel. She states she is very sensitive and can really only take her blood pressure medications. She has continued conservative treatment including at home exercising and stretching with no additional changes. Her Selvin has been reviewed and is appropriate. Review of Systems: General: No recent weight changes, no fever, no sleep disturbances Respiratory: No cough, no shortness of air, no recurring pulmonary infections Cardiovascular/peripheral vascular: No chest pain, no palpitations, no edema, no shortness of breath Gastrointestinal: No new onset incontinence, normal bowel movements reported Genitourinary: No new onset incontinence Musculoskeletal: Low back pain, bilateral hip pain Psychiatric: [Normal mood/affect] Neurological: [Denies weakness in extremities], [denies balance issues] Pain at rest (0-10 scale): 10 Objective Objective:: Physical Exam: General: Alert and oriented x3, no acute distress, pleasant and cooperative Lungs: Respirations even and unlabored, symmetrical chest expansion Eyes: PERRL Musculoskeletal: Flexion and extension of lumbar [spine] somewhat guarded secondary to pain, [antalgic gait noted] point tenderness along bilateral SIs with positive bilateral Librado's, Tha's, Gaenslen's, compression and distraction exam Neurological: Speech clear, no gross sensory deficit Has patient had previous pain injection?: Yes Percent improvement in pain since last injection: 50% lasting 1 week Conservative treatment options previously tried: Home exercise plan Length of treatment: Longer than 12 weeks Meds Home Medications and Allergies Home Medications ?Medication ?Instructions ?Recorded ?Confirmed ?Type alprazolam 0.25 mg tablet 0.25 mg PO BID 03/18/24 12/03/24 History amlodipine 10 mg tablet 10 mg PO DAILY 03/18/24 12/03/24 History lisinopril 5 mg tablet 5 mg PO DAILY 03/18/24 12/03/24 History metoprolol succinate 50 mg 50 mg PO DAILY 03/18/24 12/03/24 History tablet,extended release 24 hr pregabalin 50 mg capsule 50 mg PO HS #14 caps 03/18/24 12/03/24 Rx baclofen 5 mg tablet 5 mg PO BID #28 tabs 07/05/24 12/03/24 Rx meloxicam 7.5 mg tablet 7.5 mg PO BID #60 tabs 09/01/24 12/03/24 Rx meloxicam 7.5 mg tablet 7.5 mg PO BID #60 tabs 09/15/24 12/03/24 Rx pregabalin 25 mg capsule 25 mg PO BID #60 caps 09/15/24 12/03/24 Rx New Prescriptions to Start Prescriptions: Allergies Allergy/AdvReac Type Severity Reaction Status Date / Time penicillin G Allergy Intermediate Verified 06/15/24 13:44 Assessment and Plan *Assessment and plan (1) Bilateral sacroiliitis: Status: Acute Category: Medical Code(s): M46.1 - Sacroiliitis, not elsewhere classified Plan Patient is experiencing worsening pain along the low back and bilateral hips. They did have limited range of motion of the lumbar spine along with point tenderness along bilateral SI joints and a positive bilateral Librado's, Tha's, Gaenslen's, compression and distraction exam. I did discuss with the patient that I do believe they would benefit from bilateral SI injections. Risk and benefits were discussed with the patient and they would like to proceed forward with this option. Patient has tried and failed conservative therapy including continued at home stretching exercise for longer than 12 weeks. Patient has had longstanding low back pain for longer than 3 months. Patient will be scheduled for bilateral SI injections under fluoroscopy. Patient has been instructed to contact the clinic with any concerns before the next appointment. Dr. Escobedo has reviewed this note and agrees with this plan of care. This note was dictated using voice recognition software and make contain errors or omissions. All injections are used with Lidocaine or Bupivacaine and Depo Medrol.
== END 2024-12-03 23:59 | disposition home or self-care (01) ==
LOC: SC.PAIN 14:20
PROVIDERS: PCP Physician Assistant Medical; Visit Provider Nurse Practitioner Family
DX: M46.1 Sacroiliitis, not elsewhere classified (principal); Z73.89 Other problems related to life management difficulty
CPT/HCPCS: 99212; G0463

== ENCOUNTER 2024-12-14 13:15 | Day surgery (SDC) | payer MEDICARE, SELFPAY ==
[2024-12-14 13:58] VITALS: BP 141/69; PULSE 76; RESP 16; TEMP 36.8; O2SAT 93; BMI 26.6
[2024-12-14] MEDS: LIDOCAINE 1% 5ML PF VIAL 5 ML (14:21)
[2024-12-14] MEDS: BUPIVACAINE 0.25% 10ML INJ 25 MG IJ (14:22)
[2024-12-14 14:24] VITALS: BP 153/69; PULSE 73; RESP 18; O2SAT 98
--- NOTE | 2024-12-14 14:24 | P.PCN_ITS ---
Procedure Date: 12/14/24 Time: 14:15 Anesthesiologist:: Marvin Ayala CRNA Complications:: None Pre-procedure Diagnosis:: Bilateral sacroiliitis Post-procedure Diagnosis:: Same Indications for Procedure:: Patient is a pleasant 84-year-old female who comes our clinic today for bilateral sacroiliac joint injections cortisone and local anesthetic. Patient describes low lumbar back pain off the midline bilaterally. Bilateral posterior hip pain. Difficulty with transitioning from sitting to standing. She rates her pain 8/10. Procedure Details:: Procedure: Bilateral sacroiliac joint injections under fluoroscopy Informed consent was obtained and the risks and benefits of the procedure were explained to the patient.~ The patient was taken to the procedure room and noninvasive monitors were placed including a noninvasive blood pressure cuff and pulse oximeter.~ The patient was placed prone on the procedure table. Both hips were cleansed using Betadine as a cleansing solution. C-arm fluoroscopy was used to view the right sacroiliac joint.~ The skin and subcutaneous tissues were anesthetized using lidocaine 1.5% and a 25-gauge needle.~ After this, a 22-gauge spinal needle was inserted under fluoroscopic guidance into the inferior aspect of the right sacroiliac joint.~ Omnipaque dye was injected and good spread was seen throughout the joint.~ After this, approximately 5 mL of bupivacaine, 0.25% and Depo-Medrol, 40 mg was incrementally injected into the right sacroiliac joint. We then moved to the left sacroiliac joint.~ The skin and subcutaneous tissues were anesthetized using lidocaine 1.5% and a 25-gauge needle.~ After this, a 22- gauge spinal needle was inserted under fluoroscopic guidance into the inferior aspect of the left sacroiliac joint.~ Omnipaque dye was injected and good spread was seen throughout the joint. After this, approximately 5 mL of bupivacaine, 0.25% and Depo-Medrol, 40 mg was incrementally injected into the left sacroiliac joint.~ The patient tolerated the procedure well with no complications. The patient was observed in the Pain Clinic and then was discharged home neurologically intact. Plan and Disposition:: Patient was discharged without incident.
[2024-12-14 14:26] VITALS: BP 153/69; PULSE 73; RESP 18; O2SAT 98
[2024-12-14 14:30] VITALS: BP 122/62; PULSE 60; RESP 16; O2SAT 96
== END 2024-12-14 14:30 | disposition home or self-care (01) ==
PROVIDERS: Visit Provider Nurse Anesthetist, Certified Registered
DX: M46.1 Sacroiliitis, not elsewhere classified (principal)
CPT/HCPCS: 27096; G0260; J1010

== ENCOUNTER 2025-01-06 09:15 | Outpatient (POV) | payer MEDICARE, SELFPAY ==
[2025-01-06 09:40] VITALS: BP 123/69; PULSE 65; RESP 14; O2SAT 98; BMI 25.7
--- NOTE | 2025-01-06 10:39 | A.OFFVIS_ITS ---
[facility] Disclaimer: The information contained in this section may have been updated after the patient was seen, as this information can be updated by other users. Medical History Hypertension Family History Other No significant family history Social History Smoking Status: Never smoker alcohol intake: never current occupational status: other Travel in the last 8 weeks: None Have you lived/traveled outside [place] in past 30 days?: No Contact w/someone who lives/traveled outside [place] past 30 days?: No Exposure to someone with infectious disease in past 14 days?: No Do you have a fever (greater than 100.4 F or 38 C)?: No Have you tested positive for COVID-19: No Exposed to someone with COVID-19 in past 14 days?: No Do you have a sore throat?: No Do you have a cough?: No Do you have any weakness?: No Do you have any diarrhea?: No Are you experiencing any unusual bleeding?: No Do you have any muscle aches/pain?: No Do you have any abdominal pain?: No Are you experiencing loss of taste or smell?: No PM Subjective & Objective Subjective Subjective:: Patient is a pleasant 84-year-old female who presents today for follow-up of bilateral SI injections on 12/14/2024. Today she rates her pain a 9 out of 10. She denies any new falls or injuries. She does state that she felt like the injection really did not seem to do anything. Patient did have a previous lumbar epidural at L4-L5 back in October that did provide 50% relief however only gave a 1 week of relief. Patient states that she felt like the best injection she had was in June that lasted about 3 months. Patient states the pain continues to be all across her low back and does go down into her entire l eft leg and does go some into the right hip and buttocks area. Patient has been tried on Lyrica from our office however stated it caused some diarrhea. Patient had been prescribed gabapentin in the past from an outside provider and stated that she could not function on that medication. Patient states that she just feels like that she is back to where she was last year and that nothing seems to be really making significant improvements that is long-lasting. Patient does state that she is not interested in surgical intervention. She has been tried on the compounded cream and has done chiropractor therapy with no additional relief. Her Selvin has been reviewed and is appropriate. Review of Systems: General: No recent weight changes, no fever, no sleep disturbances Respiratory: No cough, no shortness of air, no recurring pulmonary infections Cardiovascular/peripheral vascular: No chest pain, no palpitations, no edema, no shortness of breath Gastrointestinal: No new onset incontinence, normal bowel movements reported Genitourinary: No new onset incontinence Musculoskeletal: Low back pain, left leg pain Psychiatric: [Normal mood/affect] Neurological: [Denies weakness in extremities], [denies balance issues] Pain at rest (0-10 scale): 9 Objective Objective:: Physical Exam: General: Alert and oriented x3, no acute distress, pleasant and cooperative Lungs: Respirations even and unlabored, symmetrical chest expansion Eyes: PERRL Musculoskeletal: Flexion and extension of lumbar [spine] somewhat guarded secondary to pain, [antalgic gait noted] Neurological: Speech clear, no gross sensory deficit Has patient had previous pain injection?: Yes Percent improvement in pain since last injection: Minimal Conservative treatment options previously tried: Home exercise plan Length of treatment: Longer than 12-week Meds Home Medications and Allergies Home Medications ?Medication ?Instructions ?Recorded ?Confirmed ?Type alprazolam 0.25 mg tablet 0.25 mg PO BID 03/18/24 01/06/25 History amlodipine 10 mg tablet 10 mg PO DAILY 03/18/24 01/06/25 History lisinopril 5 mg tablet 5 mg PO DAILY 03/18/24 01/06/25 History metoprolol succinate 50 mg 50 mg PO DAILY 03/18/24 01/06/25 History tablet,extended release 24 hr pregabalin 50 mg capsule 50 mg PO HS #14 caps 03/18/24 01/06/25 Rx baclofen 5 mg tablet 5 mg PO BID #28 tabs 07/05/24 01/06/25 Rx meloxicam 7.5 mg tablet 7.5 mg PO BID #60 tabs 09/01/24 01/06/25 Rx meloxicam 7.5 mg tablet 7.5 mg PO BID #60 tabs 09/15/24 01/06/25 Rx pregabalin 25 mg capsule 25 mg PO BID #60 caps 09/15/24 01/06/25 Rx New Prescriptions to Start Prescriptions: Allergies Allergy/AdvReac Type Severity Reaction Status Date / Time penicillin G Allergy Intermediate Verified 06/15/24 13:44 Assessment and Plan *Assessment and plan (1) Left leg pain: Status: Acute Category: Medical Code(s): M79.605 - Pain in left leg (2) Lumbar radiculopathy: Status: Acute Category: Medical Code(s): M54.16 - Radiculopathy, lumbar region (3) Degenerative disc disease, lumbar: Status: Acute Category: Medical Code(s): M51.369 - Other intervertebral disc degeneration, lumbar region without mention of lumbar back pain or lower extremity pain Plan I did discuss with the patient that we can always try the transforaminal again to help treat her low back and leg symptoms however this would not be able to be done until the end of January. I did discuss with the patient since she has tried gabapentin and the Lyrica for the nerve pain and could not tolerate these that we could try amitriptyline 10 mg daily. Patient would like time to go home and see if she has ever been on this medication. I have counseled her that she can call us and let us know if she would like me to send this prescription again. Patient will return to clinic at her convenience. Patient has been instructed to contact the clinic with any concerns before the next appointment. Dr. Escobedo has reviewed this note and agrees with this plan of care. This note was dictated using voice recognition software and make contain errors or omissions. All injections are used with Lidocaine, Bupivacaine and Depo Medrol. Occasionally urine drug screen is needed to verify patient's compliance with our office pain contract. This is ordered based off specific treatments related to chronic pain with the potential to abuse certain medications.
== END 2025-01-06 23:59 | disposition home or self-care (01) ==
PROVIDERS: PCP Physician Assistant; Visit Provider Nurse Practitioner Family
DX: M79.605 Pain in left leg (principal); M51.16 Intervertebral disc disorders with radiculopathy, lumbar region
CPT/HCPCS: 99212; G0463